=== PATIENT | female | born 1985 | race Two or more races ===

== ENCOUNTER 2017-01-17 07:37 | Emergency (ER) | payer OTHER ==
[~2017-01-17] VITALS: Ht 167.6 cm; Wt 56.7 kg
[2017-01-17] MEDS ORDERED: IBUPROFEN 600 MG TABLET. PO ONE (08:00)
--- NOTE | 2017-01-17 08:07 | PHYS DOC ---
Past Medical History Past Medical History: No Pertinent History Past Surgical History: No Surgical History Additional Information: nonsmoker Alcohol Use: None Drug Use: None Adult General Chief Complaint Chief Complaint: FEVER HPI HPI Patient is a 31 year old female who presents with fever and cough for 5 days. She has not taken her temperature at home, but has a fever of 100.9F in the emergency department today. Her cough is productive with post-tussive emesis. She has also had nasal congestion and sore throat. She denies shortness of breath or ear pain. Her was diagnosed with the flu last week. She did not receive a flu shot this season. She does not have a PCP. Review of Systems Review of Systems Constitutional: Reports fevers. Eyes: Denies change in visual acuity, redness, or eye pain [] HENT: Denies otalgia. Reports nasal congestion and sore throat. Respiratory: Denies shortness of breath. Reports productive cough. Cardiovascular: No additional information not addressed in HPI [] GI: Denies abdominal pain, bloody stools or diarrhea. Reports nausea and post- tussive emesis. : Denies dysuria or hematuria [] Musculoskeletal: Denies back pain or joint pain [] Integument: Denies rash or skin lesions [] Neurologic: Denies headache, focal weakness or sensory changes [] Endocrine: Denies polyuria or polydipsia [] Current Medications Current Medications Current Medications Medications (Trade) Dose Ordered Sig/[facility] Start Time Stop Time Status Last Admin Dose Admin Ibuprofen (Motrin) 600 mg 1X ONCE 01/17/17 08:00 01/17/17 08:01 DC 01/17/17 08:04 600 MG Allergies Allergies Allergies Coded Allergies Type Severity Reaction Last Updated Verified No Known Drug Allergies 01/17/17 No Physical Exam Physical Exam Constitutional: Well developed, well nourished, no acute distress, non-toxic appearance. [] HENT: Normocephalic, atraumatic, bilateral external ears normal, oropharynx moist, no oral exudates, nose normal. Bilateral TMs without erythema or bulging. There is no posterior pharyngeal erythema or tonsillar edema. Bilateral nasal turbinates are swollen and erythematous. Eyes: PERRLA, EOMI, conjunctiva normal, no discharge. [] Neck: Normal range of motion, no tenderness, supple, no stridor. [] Cardiovascular: Heart rate regular rhythm, no murmur [] Lungs & Thorax: Bilateral breath sounds clear to auscultation without wheezes, rales, or rhonchi. Skin: Warm, dry, no erythema, no rash. [] Neurologic: Alert and oriented X 3, normal motor function, normal sensory function, no focal deficits noted. [] Psychologic: Affect normal, judgement normal, mood normal. [] Current Patient Data Vital Signs Vital Signs Date Time Temp Pulse Resp B/P Pulse Ox O2 Delivery O2 Flow Rate FiO2 01/17/17 07:47 100.9 111 18 96 Room Air 100.9 Lab Values Laboratory Tests Test 01/17/17 07:43 Influenza Type A Antigen Negative (NEGATIVE) Influenza Type B Antigen Positive (NEGATIVE) EKG EKG [] Radiology/Procedures Radiology/Procedures [] Course & Med Decision Making Course & Med Decision Making Pertinent Labs and Imaging studies reviewed. (See chart for details) [] Dragon Disclaimer Dragon Disclaimer This electronic medical record was generated, in whole or in part, using a voice recognition dictation system. Departure Departure Impression: Primary Impression: Influenza B Disposition: 01 HOME, SELF-CARE Condition: STABLE Patient Instructions: Influenza, Adult, Cphu-er-[id number] Additional Instructions: You tested positive for influenza B. This is a viral illness and antibiotics will not help. Please use the prescribed inhaler as needed for cough or shortness of breath. Do not use more often than directed. Please follow up with a primary care provider within the next week. Return to the emergency department if you have high fever not responding to medication, difficulty breathing, or other new or concerning symptoms. Scripts Benzonatate 200 Mg Capsule1 Cap PO TID #30 CAP Prov:JEANNETTE SEAMAN 01/17/17 Albuterol Sulfate (Proair Hfa Inhaler)8.5 Gm Hfa.[id number].[id number] Puff INH Q4HRS PRN SHORTNESS OF BREATH #1 INHALER Prov:JEANNETTE SEAMAN 01/17/17 JEANNETTE SEAMAN Jan 17, 2017 08:07
[2017-01-17 08:20] LABS: OBC FLU VALID
[2017-01-17] MEDS ORDERED: BENZ200C39 PO (08:25)
[2017-01-17] MEDS ORDERED: PROAIR HFA8.5 GM INH (08:25)
[2017-01-17 08:55] VITALS: BP 113/77
== END 2017-01-17 08:58 | disposition home or self-care (01) ==
LOC: ER 07:37
DX: J10.1 Influenza due to other identified influenza virus with other respiratory manifestations (principal)
CPT/HCPCS: 87804; 99284

== ENCOUNTER 2019-06-01 10:54 | Emergency (ER) | payer BC, OTHER ==
[~2019-06-01] VITALS: Ht 165.1 cm; Wt 61.2 kg
[~2019-06-01 10:54] MED LIST: ALBU2.5V8 INH; BENZ200C47 PO
[2019-06-01] MEDS ORDERED: IV NORMAL SALINE 1000ML BAG 1,000 ML IV ONE (11:45)
--- NOTE | 2019-06-01 11:53 | PHYS DOC ---
Past Medical History Past Medical History: No Pertinent History Past Surgical History: No Surgical History Alcohol Use: None Drug Use: None Adult General Chief Complaint Chief Complaint: Palpitations HPI HPI Patient is a 34 year old male who presents with shortness breath and chest pain that started when she woke up this morning. The patient is 6 weeks also states she has been having vaginal bleeding. The shortness breath and chest pain is intermittent. Patient has seen [facility] last week for . Rates her pain as 0 out of 10, was given 324 mg of aspirin by EMS. Last menstrual period was April 18. [id number]. Review of Systems Review of Systems Constitutional: Denies fever or chills [] Eyes: Denies change in visual acuity, redness, or eye pain [] HENT: Denies nasal congestion or sore throat [] Respiratory: Denies cough but reports shortness of breath [] Cardiovascular: Reports chest pain and palpitations. GI: Denies abdominal pain, nausea, vomiting, bloody stools or diarrhea [] : Denies dysuria or hematuria. Report vaginal bleeding. Musculoskeletal: Denies back pain or joint pain [] Integument: Denies rash or skin lesions [] Neurologic: Denies headache, focal weakness or sensory changes [] Endocrine: Denies polyuria or polydipsia [] Complete systems were reviewed and found to be within normal limits, except as documented in this note. Current Medications Current Medications Current Medications Medications (Trade) Dose Ordered Sig/Leti Start Time Stop Time Status Last Admin Dose Admin Sodium Chloride 1,000 ml @ 1,000 mls/hr 1X ONCE 06/01/19 11:45 06/01/19 12:44 DC 06/01/19 13:43 1,000 MLS/HR Allergies Allergies Allergies Coded Allergies Type Severity Reaction Last Updated Verified No Known Drug Allergies 01/17/17 No Physical Exam Physical Exam Constitutional: Well developed, well nourished, no acute distress, non-toxic appearance. [] HENT: Normocephalic, atraumatic, bilateral external ears normal, oropharynx moist, no oral exudates, nose normal. [] Eyes: PERRLA, EOMI, conjunctiva normal, no discharge. [] Neck: Normal range of motion, no tenderness, supple, no stridor. [] Cardiovascular:Heart rate regular rhythm, no murmur [] Lungs & Thorax: Bilateral breath sounds clear to auscultation [] Abdomen: Bowel sounds normal, soft, no tenderness, no masses, no pulsatile masses. [] Skin: Warm, dry, no erythema, no rash. [] Back: No tenderness, no CVA tenderness. [] Extremities: No tenderness, no cyanosis, no clubbing, ROM intact, no edema. [] Neurologic: Alert and oriented X 3, normal motor function, normal sensory function, no focal deficits noted. [] Psychologic: Affect normal, judgement normal, mood normal. [] Pelvic Exam: External exam is normal and without rash, No CMT, OS is closed, Has vaginal bleeding, No discharge, uterus NTTP, No adnexal masses or tenderness noted Current Patient Data Vital Signs Vital Signs Date Time Temp Pulse Resp B/P (MAP) Pulse Ox O2 Delivery O2 Flow Rate FiO2 06/01/19 12:00 72 18 109/72 (84) 98 Room Air Lab Values Laboratory Tests Test 06/01/19 12:15 06/01/19 12:25 Urine Collection Type Unknown Urine Color Yellow Urine Clarity Clear Urine pH 7.0 Urine Specific [place] <=1.005 Urine Protein Negative mg/dL (NEG-TRACE) Urine Glucose (UA) Negative mg/dL (NEG) Urine Ketones (Stick) Negative mg/dL (NEG) Urine Blood Large (NEG) Urine Nitrite Negative (NEG) Urine Bilirubin Negative (NEG) Urine Urobilinogen Dipstick 0.2 mg/dL (0.2 mg/dL) Urine Leukocyte Esterase Trace (NEG) Urine RBC 6-10 /HPF (0-2) Urine WBC 5-10 /HPF (0-4) Urine Squamous Epithelial Cells Mod /LPF Urine Bacteria Few /HPF (0-FEW) White Blood Count 7.9 x10^3/uL (4.0-11.0) Red Blood Count 4.02 x10^6/uL (3.50-5.40) Hemoglobin 12.0 g/dL (12.0-15.5) Hematocrit 35.5 % (36.0-47.0) L Mean Corpuscular Volume 88 fL (79-100) Mean Corpuscular Hemoglobin 30 pg (25-35) Mean Corpuscular Hemoglobin Concent 34 g/dL (31-37) Red Cell Distribution Width 13.0 % (11.5-14.5) Platelet Count 248 x10^3/uL (140-400) Neutrophils (%) (Auto) 81 % (31-73) H Lymphocytes (%) (Auto) 13 % (24-48) L Monocytes (%) (Auto) 5 % (0-9) Eosinophils (%) (Auto) 0 % (0-3) Basophils (%) (Auto) 0 % (0-3) Neutrophils # (Auto) 6.5 x10^3uL (1.8-7.7) Lymphocytes # (Auto) 1.0 x10^3/uL (1.0-4.8) Monocytes # (Auto) 0.4 x10^3/uL (0.0-1.1) Eosinophils # (Auto) 0.0 x10^3/uL (0.0-0.7) Basophils # (Auto) 0.0 x10^3/uL (0.0-0.2) D-Dimer (Mariana) < 0.27 ug/mlFEU Maternal Serum HCG Beta Subunit 1475 mIU/mL (0-5) H Sodium Level 138 mmol/L (136-145) Potassium Level 3.6 mmol/L (3.5-5.1) Chloride Level 104 mmol/L (98-107) Carbon Dioxide Level 25 mmol/L (21-32) Anion Gap 9 (6-14) Blood Urea Nitrogen 7 mg/dL (7-20) Creatinine 0.8 mg/dL (0.6-1.0) Estimated GFR (Cockcroft-Gault) 82.6 BUN/Creatinine Ratio 9 (6-20) Glucose Level 91 mg/dL (70-99) Calcium Level 8.7 mg/dL (8.5-10.1) Total Bilirubin 0.5 mg/dL (0.2-1.0) Aspartate Amino Transferase (AST) 11 U/L (15-37) L Alanine Aminotransferase (ALT) 20 U/L (14-59) Alkaline Phosphatase 82 U/L (46-116) Troponin I Quantitative < 0.017 ng/mL (0.000-0.055) Total Protein 8.3 g/dL (6.4-8.2) H Albumin 3.8 g/dL (3.4-5.0) Albumin/Globulin Ratio 0.8 (1.0-1.7) L Laboratory Tests 7/3/19 12:25 Laboratory Tests 06/01/19 12:25 EKG EKG EKG interpreted by Dr. Rodas NO STEMI, Rate of 77.[] Radiology/Procedures Radiology/Procedures [][facility] [address] [place] [address] IMAGING REPORT Signed PATIENT: BELEN ALVAREZ ACCOUNT: [id number] : 1985 LOCATION: ER AGE: 34 SEX: F EXAM STATUS: REG ER ORD. PHYSICIAN: DOLLY BROWN APRN REASON: vaginal spotting; PROCEDURE: OB <14 WKS W/TV Obstetric pelvic ultrasound June 01, 2019 INDICATION: Vaginal spotting. COMPARISON: None available TECHNIQUE: Sonographic evaluation of the pelvis was performed utilizing grayscale, color Doppler spectral waveform analysis. Transabdominal and transvaginal imaging was obtained. FINDINGS: Uterus measures 8.3 x 5.0 x 4.1 cm. Cervical length measures 3.5 cm. Gestational sac is identified with a yolk sac. pole is not visualized. Gestational sac measures 0.46 cm compatible with a gestational age of 5 weeks 2 days. There is no subchorionic hemorrhage. Left ovary measures 2.0 x 2.4 x 1.9 cm. There is a cyst with internal echoes measuring 1.4 x 1.3 x 1.2 cm which may represent a corpus luteal cyst. Arterial and venous waveform are identified at the time of imaging. Right ovary measures 2.7 x 2.4 x 1.5 cm and is within normal limits. Arterial and venous waveform are identified at the time of imaging. There is no free fluid within the pelvis. IMPRESSION: Single intrauterine gestation is identified. A pole is not yet visualized. Gestational sac diameter is suggestive of a gestational age of 5 weeks 2 days compatible with EDC of 01/30/2020. Cervix is closed. Short-term follow-up pelvic ultrasound and beta-hCG is recommended to confirm early . Complex cyst in the left ovary measures 1.4 x 1.3 x 1.2 cm. Consideration may be given for a corpus luteal cyst. Electronically signed by: Juan Daley MD (06/01/2019 1:20 PM) [id number] DICTATED and SIGNED BY: JUAN DALEY MD DATE: 06/01/19 1320 Course & Med Decision Making Course & Med Decision Making Pertinent Labs and Imaging studies reviewed. (See chart for details) Will evaluate vaginal bleeding with ultrasound, pelvic exam, and labs. Will also get labs to evaluate chest pain/sob. Will obtain EKG, and urine. Labs are unremarkable with exception of UTI. Will treat with Keflex. Ultrasound showed intrauterine gestational sac. Will have follow up with OB on Thursday. Dragon Disclaimer Dragon Disclaimer This electronic medical record was generated, in whole or in part, using a voice recognition dictation system. Departure Departure Impression: Primary Impression: Vaginal bleeding affecting early Additional Impressions: Near syncope UTI (urinary tract infection) during Disposition: HOME, SELF-CARE Condition: STABLE Referrals: NO PCP (PCP) Patient Instructions: Near-Syncope, Vaginal Bleeding During , First Trimester Additional Instructions: Thank you for visiting [facility]. We appreciate you trusting us with your care. If any additional problems come up don't hesitate to return to visit us. Please follow up with your primary care provider so they can plan additional care if needed and know about the problem that you had. If symptoms worsen come back to the Emergency Department. Any concerning symptoms that start such as chest pain, shortness of Air, weakness or numbness on one side of the body, running high fevers or any other concerning symptoms return to the ER. You have been prescribed an antibiotic today to help fight your infection. Please take all of the antibiotic as directed. If after 48 hours the infection is not improving, please return for more care. If the infection worsens, return to ER for additional care. Please follow up with your OB on Thursday. I have included your labs below so they could see. Test 06/01/19 12:15 06/01/19 12:25 Urine Collection Type Unknown Urine Color Yellow Urine Clarity Clear Urine pH 7.0 Urine Specific [place] <=1.005 Urine Protein Negative mg/dL (NEG-TRACE) Urine Glucose (UA) Negative mg/dL (NEG) Urine Ketones (Stick) Negative mg/dL (NEG) Urine Blood Large (NEG) Urine Nitrite Negative (NEG) Urine Bilirubin Negative (NEG) Urine Urobilinogen Dipstick 0.2 mg/dL (0.2 mg/dL) Urine Leukocyte Esterase Trace (NEG) Urine RBC 6-10 /HPF (0-2) Urine WBC 5-10 /HPF (0-4) Urine Squamous Epithelial Cells Mod /LPF Urine Bacteria Few /HPF (0-FEW) White Blood Count 7.9 x10^3/uL (4.0-11.0) Red Blood Count 4.02 x10^6/uL (3.50-5.40) Hemoglobin 12.0 g/dL (12.0-15.5) Hematocrit 35.5 % (36.0-47.0) L Mean Corpuscular Volume 88 fL (79-100) Mean Corpuscular Hemoglobin 30 pg (25-35) Mean Corpuscular Hemoglobin Concent 34 g/dL (31-37) Red Cell Distribution Width 13.0 % (11.5-14.5) Platelet Count 248 x10^3/uL (140-400) Neutrophils (%) (Auto) 81 % (31-73) H Lymphocytes (%) (Auto) 13 % (24-48) L Monocytes (%) (Auto) 5 % (0-9) Eosinophils (%) (Auto) 0 % (0-3) Basophils (%) (Auto) 0 % (0-3) Neutrophils # (Auto) 6.5 x10^3uL (1.8-7.7) Lymphocytes # (Auto) 1.0 x10^3/uL (1.0-4.8) Monocytes # (Auto) 0.4 x10^3/uL (0.0-1.1) Eosinophils # (Auto) 0.0 x10^3/uL (0.0-0.7) Basophils # (Auto) 0.0 x10^3/uL (0.0-0.2) D-Dimer (Mariana) < 0.27 ug/mlFEU Maternal Serum HCG Beta Subunit 1475 mIU/mL (0-5) H Sodium Level 138 mmol/L (136-145) Potassium Level 3.6 mmol/L (3.5-5.1) Chloride Level 104 mmol/L (98-107) Carbon Dioxide Level 25 mmol/L (21-32) Anion Gap 9 (6-14) Blood Urea Nitrogen 7 mg/dL (7-20) Creatinine 0.8 mg/dL (0.6-1.0) Estimated GFR (Cockcroft-Gault) 82.6 BUN/Creatinine Ratio 9 (6-20) Glucose Level 91 mg/dL (70-99) Calcium Level 8.7 mg/dL (8.5-10.1) Total Bilirubin 0.5 mg/dL (0.2-1.0) Aspartate Amino Transferase (AST) 11 U/L (15-37) L Alanine Aminotransferase (ALT) 20 U/L (14-59) Alkaline Phosphatase 82 U/L (46-116) Troponin I Quantitative < 0.017 ng/mL (0.000-0.055) Total Protein 8.3 g/dL (6.4-8.2) H Albumin 3.8 g/dL (3.4-5.0) Albumin/Globulin Ratio 0.8 (1.0-1.7) L Scripts Cephalexin (KEFLEX) 500 Mg Capsule 1 CAP PO BID for 7 Days, #14 CAP Prov: DOLLY BROWN APRN 06/01/19 Problem Qualifiers Additional Impressions: UTI (urinary tract infection) during Trimester: first trimester Qualified Codes: O23.41 - Unspecified infection of urinary tract in , first trimester DOLLY RBOWN APRN Jun 01, 2019 11:53
--- NOTE | 2019-06-01 12:01 | EKG ---
[facility] [address] [place] [address] Test Date: 2019-06-01 Test Time: 11:03:40 Pat Name: BELEN ALVAREZ Department: Room: Gender: F Bid Analyst: : 1985 Requested By: DOLLY BROWN Order Number: [id number] Reading MD: Measurements Intervals [place] Rate: 76 P: 59 NV: 128 QRS: 63 QRSD: 80 T: 26 QT: 352 QTc: 400 Interpretive Statements SINUS RHYTHM LEFT ATRIAL ABNORMALITY ABNORMAL ECG No previous ECG available for comparison
[2019-06-01 12:49] LABS: BASO % 0 % (0-3); EOS % 0 % (0-3); HEMATOCRIT 35.5 % (36.0-47.0); LYMPH % 13 % (24-48); MEAN CORPUSCULAR HEMOGLOBIN 30 pg (25-35); MEAN CORPUSCULAR HGB CONC 34 g/dL (31-37); MEAN CORPUSCULAR VOLUME 88 fL (79-100); MONO # 0.4 x10^3/uL (0.0-1.1); MONO % 5 % (0-9); NEUT # 6.5 x10^3uL (1.8-7.7); NEUT % 81 % (31-73); PLATELET COUNT 248 x10^3/uL (140-400); RED BLOOD COUNT 4.02 x10^6/uL (3.50-5.40); WHITE BLOOD COUNT 7.9 x10^3/uL (4.0-11.0)
[2019-06-01 12:53] LABS: CALCIUM 8.7 mg/dL (8.5-10.1); CREATININE 0.8 mg/dL (0.6-1.0); GFR 82.6; POTASSIUM 3.6 mmol/L (3.5-5.1)
[2019-06-01 12:59] LABS: ALBUMIN 3.8 g/dL (3.4-5.0); ALBUMIN/GLOBULIN RATIO 0.8 (1.0-1.7); TOTAL BILIRUBIN 0.5 mg/dL (0.2-1.0); TOTAL PROTEIN 8.3 g/dL (6.4-8.2)
[2019-06-01 13:01] LABS: BILIRUBIN,URINE NEGATIVE (NEG); CLARITY,URINE CLEAR; COLOR,URINE YELLOW; NITRITE,URINE NEGATIVE (NEG); PROTEIN,URINE NEGATIVE (NEG-TRACE); UROBILINOGEN,URINE 0.2 mg/dL (0.2 mg/dL)
--- NOTE | 2019-06-01 13:23 | RAD ---
Obstetric pelvic ultrasound June 01, 2019 INDICATION: Vaginal spotting. COMPARISON: None available TECHNIQUE: Sonographic evaluation of the pelvis was performed utilizing grayscale, color Doppler spectral waveform analysis. Transabdominal and transvaginal imaging was obtained. FINDINGS: Uterus measures 8.3 x 5.0 x 4.1 cm. Cervical length measures 3.5 cm. Gestational sac is identified with a yolk sac. pole is not visualized. Gestational sac measures 0.46 cm compatible with a gestational age of 5 weeks 2 days. There is no subchorionic hemorrhage. Left ovary measures 2.0 x 2.4 x 1.9 cm. There is a cyst with internal echoes measuring 1.4 x 1.3 x 1.2 cm which may represent a corpus luteal cyst. Arterial and venous waveform are identified at the time of imaging. Right ovary measures 2.7 x 2.4 x 1.5 cm and is within normal limits. Arterial and venous waveform are identified at the time of imaging. There is no free fluid within the pelvis. IMPRESSION: Single intrauterine gestation is identified. A pole is not yet visualized. Gestational sac diameter is suggestive of a gestational age of 5 weeks 2 days compatible with EDC of 01/30/2020. Cervix is closed. Short-term follow-up pelvic ultrasound and beta-hCG is recommended to confirm early . Complex cyst in the left ovary measures 1.4 x 1.3 x 1.2 cm. Consideration may be given for a corpus luteal cyst. Electronically signed by: Ivana Hernandez MD (06/01/2019 1:20 PM) [email or web address]
[2019-06-01 13:32] LABS: BACTERIA,URINE FEW /HPF (0-FEW); SQUAMOUS EPITHELIAL CELL,UR MOD /LPF
[2019-06-01] MEDS ORDERED: CEPH-264 PO (13:59)
[2019-06-01 14:00] VITALS: BP 111/71
== END 2019-06-01 14:20 | disposition home or self-care (01) ==
LOC: ER 10:54
DX: O23.41 Unspecified infection of urinary tract in pregnancy, first trimester (principal); R55 Syncope and collapse; R07.89 Other chest pain; R06.02 Shortness of breath; Z3A.01 Less than 8 weeks gestation of pregnancy
CPT/HCPCS: 36415; 76801; 76817; 80053; 81001; 84484; 84702; 85025; 85379; 86900; 86901; 87086; 93005; 99285; J7030